=== PATIENT | female | born 1960 | race Caucasian/White ===

== ENCOUNTER 2018-03-21 13:53 | Outpatient (CLI) | payer OTHER ==
--- NOTE | 2018-03-21 14:23 | RAD ---
TWO VIEWS CHEST: DATE: 03/21/18. PROVIDED CLINICAL HISTORY: Disability evaluation. FINDINGS: No comparisons. Cardiac and mediastinal silhouette is within normal limits. Median sternotomy vicente es are seen. Calcified granulomas are seen in the right lung. No focal consolidation, pleural fluid , or pneumothorax apparent. Thoracic spondylosis changes are seen. IMPRESSION: No evidence for an acute cardiopulmonary process. POS: [facility]
== END 2018-03-21 13:54 | disposition home or self-care (01) ==
LOC: NAV RAD 13:53
PROVIDERS: ATTEND Family Medicine
DX: Z02.71 Encounter for disability determination (principal); J44.9 Chronic obstructive pulmonary disease, unspecified; M54.12 Radiculopathy, cervical region
CPT/HCPCS: 71046